=== PATIENT | male | born 1995 | race Caucasian/White ===

== ENCOUNTER 2017-07-23 03:03 | Emergency (ER) | payer OTHER, SELFPAY ==
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
== END 2017-07-23 04:00 ==
LOC: SCSER 03:03
DX: F10.129 Alcohol abuse with intoxication, unspecified (principal)
CPT/HCPCS: 71010; 72170; 96360